=== PATIENT | male | born 1995 ===

== ENCOUNTER 2018-01-23 12:25 | Emergency (ER) | payer SELFPAY ==
[~2018-01-23] VITALS: Ht 180.3 cm; Wt 72.6 kg
[2018-01-23 12:29] VITALS: BP 128/81; Ht 180.3 cm; Wt 72.6 kg
== END 2018-01-23 14:42 | disposition left against medical advice (07) ==
LOC: ED 12:25
DX: Z53.21 Procedure and treatment not carried out due to patient leaving prior to being seen by health care provider (principal)